=== PATIENT | male | born 1945 | race Caucasian/White ===

== ENCOUNTER 2024-01-27 12:35 | Outpatient (CLI) | payer OTHER, SELFPAY ==
--- NOTE | 2024-01-27 13:00 | MR_ITS ---
[address] [address] Phone:?[phone] Fax:?[phone] Referring Physician Information: Tr Dmias M.D. [address] [place] [address] Phone:?[phone] Fax:?[phone] Patient:?Gerardo Moctezuma D.O.B:?1945 Sex:?Male Phone:?[phone] [facility] MRN:?[id number] Exam Date:?01/27/2024 EXAM: MRI OF THE RIGHT KNEE CLINICAL INFORMATION: The patient is an 78-year-old with right knee pain. Evaluate for meniscal tear. PRIOR SURGERY: None reported. COMPARISON STUDIES: Comparison is made to prior radiographs dated 01/20/2024. TECHNICAL INFORMATION: Imaging was performed on a high-field, 1.5 Mitzy MR scanner. Axial proton-density and fat-suppressed T2 imaging of the right knee was produced in addition to sagittal proton-density and fat-suppressed proton- density imaging. Coronal proton-density and coronal STIR imaging was also produced. FINDINGS: Articular/Extraarticular collections: Effusion: Mild to moderate. Popliteal cyst: Small, seen on sagittal series 6 image 24. Loose bodies: No well-defined intra-articular loose bodies are noted. Subcutaneous and extraarticular soft tissues: Within normal limits. Osseous structures: There is cortical irregularity, subcortical edema, and subcortical cystic change along the articular surfaces of the patellofemoral articulation with spurring along the articular margins and fragmentation along the superior aspect of the patella. The findings are in keeping with patellofemoral osteoarthritis and are consistent with the chondromalacia and chondral loss described below. Additional areas of increased marrow signal intensity can be seen along the articular surfaces of the medial femoral condyle and lateral tibial plateau, in keeping with chondromalacia and chondral loss discussed below. No other bony abnormalities about the knee are seen. Ligamentous structures: ACL: Intact and normal in appearance. PCL: Intact and normal in appearance. MCL: Intact and normal in appearance. LCL: Intact and normal in appearance. Posterolateral corner: Intact and normal in appearance. Posteromedial corner: No posteromedial corner soft tissue injury. Semimembranosus and pes anserine tendons demonstrate no tendinopathy or associated bursitis. Extensor mechanism/Patellar retinacular structures: Patellar tendon: Intact, without tendinopathy. Quadriceps tendon: Intact, without tendinopathy. Retinacula: The medial and lateral retinacula are intact. The medial patellofemoral ligament is intact. Medial compartment: Medial meniscus: The medial meniscus is abnormal in appearance. There is broad- based tearing and degeneration of the middle and posterior portions of the medial meniscus, seen to best advantage on coronal series 7 image 18 and on sagittal series 6 image 21. Additional superior surface tearing of the anterior horn of the medial meniscus can be seen on sagittal series 6 image 25. No definite evidence for well-defined parameniscal cyst formation is seen. Medial femoral condyle: Full-thickness and near full-thickness chondral loss can be seen along the weightbearing surfaces of the medial femoral condyle. Underlying bony changes are seen. Medial tibial plateau: Full-thickness and near full-thickness chondral loss can be seen along the weightbearing surfaces of the medial tibial plateau. Lateral compartment: Lateral meniscus: Apical free edge and inferior surface tearing of the posterior horn of the lateral meniscus can be seen on sagittal series 6 image 10. The remainder of the lateral meniscus appears intact. No parameniscal cyst formation is identified. Lateral femoral condyle: Grade II chondromalacia can be seen along the weightbearing surfaces of the lateral femoral condyle. Lateral tibial plateau: Grade II to III chondromalacia can be seen along the weightbearing surfaces of the lateral tibial plateau. Patellofemoral compartment: Patella: Full-thickness and near full-thickness chondral loss can be seen along the lateral patellar facet with underlying bony change. Trochlea: Full-thickness and near full-thickness chondral loss can be seen along the lateral articular surfaces of the femoral trochlea. Underlying bony changes are seen. Neurovascular: No definite neurovascular abnormalities are seen. CONCLUSION: 1. Tearing of the medial and lateral menisci as discussed above. 2. 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 3. The cruciate and collateral ligaments appear intact. 4. Mild to moderate knee joint effusion and small popliteal cyst. AEC Electronically signed on 01/28/2024 12:53:00 PM by Srinivas Perez M.D.
== END 2024-01-27 12:36 | disposition home or self-care (01) ==
LOC: MRI 12:37
PROVIDERS: PCP Internal Medicine; Visit Provider Orthopaedic Surgery
DX: M25.561 Pain in right knee (principal); S83.281A Other tear of lateral meniscus, current injury, right knee, initial encounter; S83.241A Other tear of medial meniscus, current injury, right knee, initial encounter; M17.11 Unilateral primary osteoarthritis, right knee; M25.461 Effusion, right knee; M71.21 Synovial cyst of popliteal space [Baker], right knee
CPT/HCPCS: 73721

== ENCOUNTER 2024-04-21 09:56 | Day surgery (SDC) | payer MEDICARE, BC, SELFPAY ==
[2024-04-21] VITALS (23 sets, daily range): BP systolic 89–148; BP diastolic 45–76; PULSE 53–81; RESP 14–18; TEMP 36.1–36.6; O2SAT 92–97; BMI 29.0
[2024-04-21] MEDS: OXYCODONE (CR) 10 MG TAB.ER.12H PO (10:30)
[2024-04-21] MEDS: ACETAMINOPHEN 160 MG/5 ML CUP 1000 MG PO (10:30)
[2024-04-21] MEDS: LACTATED RINGERS 1000 ML 1,000 ML 100 ML IV (10:40)
[2024-04-21] MEDS: SODIUM CHLORIDE 0.9 % (FLUSH) 10 ML SYRINGE IVF (10:49)
[2024-04-21] MEDS: fentaNYL 100 MCG/2 ML inj IVP (11:40)
[2024-04-21] MEDS: MIDAZOLAM HCL 1 MG/ML inj IVP (11:40)
--- NOTE | 2024-04-21 11:56 | SUR.PREOP ---
TIME?OUT:?1140 PT/rashid nicholas RN/rober charles MDA?VERIFICATION?OF?SURGICAL?SITE,?PROCEDURE,?AND?CONSENT OBTAINED?PRIOR?TO?INVASIVE?PROCEDURE.
[2024-04-21] MEDS: TRANEXAMIC ACID 100 MG/ML INJ 1000 MG IV (12:23)
--- NOTE | 2024-04-21 13:19 | W.PM.NB ---
Nerve Block Nerve Block Time Seen by Provider: 11:45 Date Seen: 04/21/24 Type of block requested by surgeon for post-operative analgesia: adductor canal Side: right Time out performed: Yes Verification of patient name: Yes Verification of date of : Yes Site marking: site marked Name of person performing procedure: Nick Continuous monitoring Was continuous monitoring of O2 sat, B/P, vehicle monitor technician, recorded every 15 minutes?: Yes Procedure Checklist: sterile prep, needles and gloves Ultrasound guided. Images saved: Yes Medications given in 5ml increments after negative aspiration: Marcaine %: 0.25 mL: 15 Needle gauge: 20 Precedex (mcg): 25 Patient tolerated procedure well: Yes Block Charges Block Charge (with Pro Fee): Femoral Nerve Use of Ultrasound Machine for Block: Yes- US Guidance/pain block
--- NOTE | 2024-04-21 13:19 | W.PM.NB ---
Nerve Block Nerve Block Time Seen by Provider: 11:45 Date Seen: 04/21/24 Type of block requested by surgeon for post-operative analgesia: geniculars Side: right Time out performed: Yes Verification of patient name: Yes Verification of date of : Yes Site marking: site marked Name of person performing procedure: Nick Continuous monitoring Was continuous monitoring of O2 sat, B/P, traffic monitor specialist, recorded every 15 minutes?: Yes Procedure Checklist: sterile prep, needles and gloves Ultrasound guided. Images saved: Yes Medications given in 5ml increments after negative aspiration: Marcaine %: 0.25 mL: 9 Needle gauge: 25 Patient tolerated procedure well: Yes Block Charges Block Charge (with Pro Fee): Genicular Nerve Block
--- NOTE | 2024-04-21 13:20 | W.ANESCHARGE ---
Anesthesia Charges Start Date/Time Anesthesia Start Date: 04/21/24 Anesthesia Start Time: 12:04 Stop Date/Time Anesthesia Stop Date: 04/21/24 Anesthesia Stop Time: 14:15 Summary Extremes of Age - Over 70 or under 1: MDA Coding CPT Codes CPT Codes: ANESTH KNEE ARTHROPLASTY - 00917 ([id number]) P1 - NORMAL HEALTHY PATIENT, QK - HEALTH PSYCHOLOGIST 2-4 CNCRNT ANES PROC, QX - COMPLAINT SUPERVISOR SVC W/ MD MED DIRECTION Additional Codes: Summary - Extremes of Age - Over 70 or under 1: MDA ([id number])
--- NOTE | 2024-04-21 13:53 | PM.ORPRC ---
Procedure Note Date of procedure: 04/21/24 Procedure: PREOPERATIVE DIAGNOSIS: Right knee osteoarthritis POSTOPERATIVE DIAGNOSIS: Right knee osteoarthritis NAME OF OPERATION: Right total knee arthroplasty SURGEON: Tr Dimas MD DRUG PURCHASER: ANJALI Hughes ANESTHESIA: Spinal ESTIMATED BLOOD LOSS: 0 mL COMPLICATIONS: None SPECIMENS: None DRAINS: None PREOPERATIVE ANTIBIOTICS: Ancef 2 grams IMPLANTS: 1. J&J Attune # 8 posterior stabilized femur 2. # 8 fixed-bearing tibia 3. # 8 posterior stabilized, 5 mm fixed-bearing polyethylene 4. 41 patella INDICATIONS: The patient is a 78-year-old with a longstanding history of severe, unrelenting right knee pain secondary to end-stage (grade IV) right knee osteoarthritis. Despite appropriate nonoperative management, including activity modification, anti-inflammatories, arnc-yhc-kwnxuhw pain medication, bracing, physical therapy, and injections they continue to have pain and disability. Operative intervention was offered. The risks, benefits and expected outcomes were discussed in detail. These included but were not limited to: Infection, bleeding, injury to blood vessel or nerve, venous thromboembolism. All questions were answered to their satisfaction. Use of an licensed investment sales assistant was necessary throughout the case for patient positioning and safety, soft tissue retraction, and closure. PROCEDURE: Spinal anesthesia was administered. The patient was placed supine on the operating table. The licensed investment sales assistant made sure the patient was positioned appropriately. The lower extremity was prepped and draped in the usual sterile fashion. The limb was exsanguinated with the Wilson bandage. The pneumatic tourniquet was inflated to 300 mmHg. A standard anterior incision was made with the knee in flexion. Subcutaneous dissection was sharply taken through fascial layer #1. Full-thickness medial and lateral flaps were elevated. The licensed investment sales assistant retracted the soft tissues and protected them throughout the case. A standard subvastus approach was made. The patella was subluxed. The infrapatellar fat pad was debrided. The menisci and cruciate ligaments were sharply d?brided. Marginal osteophytes were d?brided with the rongeur. The drill was used to penetrate the femoral canal. The canal was aspirated and irrigated with pulse lavage. The intramedullary femoral guide was placed for a 5-degree valgus cut, removing 12 mm off the distal femur. The saw was used to make the cut. Whitesides line and the trans epicondylar axis were marked. The femoral sizing guide was pinned onto the distal femur. Three degrees of external rotation nicely parallels the transepicondylar axis. Pins were placed for posterior referencing. The four-in-one cutting guide was pinned onto the distal femur. The anterior, posterior, and chamfer cuts were made. The licensed investment sales assistant protected the collateral ligaments. The box cutting guide was pinned. The box cuts were made. The boxed trial was placed and was an excellent fit. Drill holes for the lugs were made. Attention was then turned to the proximal tibia. The extramedullary tibial guide was placed for a neutral varus/valgus cut with 5 degrees of posterior slope, removing 2 mm based off the medial tibial surface. The licensed investment sales assistant protected the collateral ligaments and the neurovascular bundle. The saw was used to make the cut. Trial components were placed. The knee was nicely balanced in both flexion and extension. The trial components were removed. The tray was placed in appropriate rotation, parallel to our tibial cutting pins. It was pinned by the licensed investment sales assistant and the drill and the punch were used. The tray was removed. The punch was used again. We placed a bone plug in the femoral canal. Attention was then turned to the patella. [place] patellar thickness was 25 mm. The lobster claw resection guide was used with the 9.5 mm charlene. The saw was used to make the cut. Drill holes were made by the licensed investment sales assistant. The trial was placed and was an excellent fit. Cancellous surfaces were irrigated with pulse lavage and thoroughly dried by the licensed investment sales assistant. We cemented the tibial component, then the femoral component. We impacted the 5 mm polyethylene onto the tibial tray. The knee was brought into full extension. We then cemented the patellar component. Excessive cement was removed. The cement was allowed to harden. The knee was taken through a range of motion and was found to be nicely balanced in both flexion and extension. The patella tracks centrally. The licensed investment sales assistant did a three minute dilute Betadine solution soak. The licensed investment sales assistant irrigated the wound with 3 liters of normal saline via pulse lavage. The licensed investment sales assistant reapproximated the extensor mechanism with #1 Vicryl in an interrupted qiqnhi-zi-yuuzg fashion. The licensed investment sales assistant then ran the extensor mechanism with a #1 PDO Stratafix. The licensed investment sales assistant closed the subcutaneous tissues with a 3-0 Stratafix and the skin with a running 3-0 Stratafix in a subcuticular fashion. Glue was used to seal the skin. The licensed investment sales assistant placed a dry dressing. Sponge and needle counts were correct x2. The patient tolerated the procedure well. There were no apparent complications. They were carefully transferred to the hospital bed and taken to the postanesthesia care unit in satisfactory condition. PLAN: The patient will be mobilized with physical therapy. Aspirin will be used for DVT prophylaxis. They will be discharged to home once medically appropriate.
--- NOTE | 2024-04-21 14:16 | W.ANESCHARGE ---
Anesthesia Charges Start Date/Time Anesthesia Start Date: 04/21/24 Anesthesia Start Time: 12:04 Stop Date/Time Anesthesia Stop Date: 04/21/24 Anesthesia Stop Time: 14:15 Summary Extremes of Age - Over 70 or under 1: JEWELRY REPAIRER Coding CPT Codes CPT Codes: ANESTH KNEE ARTHROPLASTY - 47438 ([id number]) P1 - NORMAL HEALTHY PATIENT, QK - MULTI OPERATION MACHINE OPERATOR 2-4 CNCRNT ANES PROC, QX - JEWELRY REPAIRER SVC W/ MD MED DIRECTION Additional Codes: Summary - Extremes of Age - Over 70 or under 1: JEWELRY REPAIRER ([id number])
--- NOTE | 2024-04-21 16:32 | PM.IMCN1 ---
Date of Consult Patient: Other Consult date: 04/21/24 Requesting Physician: Orthopedics Primary Care Provider: John Beasley MD Consult Narrative Reason for consult: Postop care hypertension Narrative: Gerardo Moctezuma is a 78 year old man undergoes elective right total knee arthroplasty due to severe symptomatic right gonarthrosis. Spinal anesthesia. No complications. Estimated blood loss 0 mL. Pain adequately controlled. Review of Systems Status of ROS: Reports: 6 or more systems reviewed and unremarkable except as noted in History and below Narrative: Denies chest heaviness, pressure, tightness, pain. Denies cough. Denies dyspnea at rest, paroxysmal nocturnal dyspnea, or orthopnea. Denies orthostasis or syncope or near-syncope. Denies edema. Denies nausea vomiting. Pain well controlled. Still not able to move right lower extremity. Complains of dry mouth. Is thirsty. No recent illness. No recent travel, trauma. Denies gastrointestinal or genitourinary complaints. [facility] Medical History (Updated 04/21/24 @ 16:40 by Sarabjit Phipps MD) Hypertension ?I10 - Essential (primary) hypertension (ICD-10) 1st degree AV block ?I44.0 - Atrioventricular block, first degree (ICD-10) Basal cell carcinoma (BCC) ?C44.91 - Basal cell carcinoma of skin, unspecified (ICD-10) Surgical History (Updated 04/21/24 @ 16:38 by Sarabjit Phipps MD) History of vasectomy ?Z98.52 - Vasectomy status (ICD-10) History of appendectomy (2007) ?Z90.49 - Acquired absence of other specified parts of digestive tract (ICD-10) Family History Brother Liver cancer Throat cancer Father Glaucoma Prostate cancer Sister Breast cancer Daughter Cancer of sinus Social History Narrative: former smoker (quit 1963) Smoking Status: Former smoker What tobacco products do you use: cigarettes Smoking quit date/years: >15 years ago Do you use any of these nicotine containing products: None Second hand tobacco smoke exposure: No How often do you have a drink containing alcohol: 4 or more times a week AUDIT-C Alcohol total score: 4 Non-prescribed substance use: denies use Caffeine: Yes Meds Home Medications and Allergies Home Medications ?Medication ?Instructions ?Recorded ?Confirmed ?Type atenolol 50 mg-chlorthalidone 25 1 tab PO DAILY 01/20/24 04/21/24 History mg tablet Allergies Allergy/AdvReac Type Severity Reaction Status Date / Time hydromorphone (From Dilaudid) Allergy Unknown Verified 04/21/24 10:50 Exam Narrative: Exam Narrative: I examine him in his hospital room. His is next to him. Appears comfortable no acute distress. Alert and oriented x3. Friendly, articulate, cooperative. Vision and hearing are adequate. Lungs are clear to auscultation. Heart tones with regular rhythm. Abdomen benign. Extremities without edema. Does not move affected right lower extremity yet. Const: Vital Signs, click to edit/add: Vital Signs - 24 hr 04/21/24 10:46 04/21/24 11:40 04/21/24 11:45 Temperature 97.9 F Pulse Rate 70 59 L 58 L Respiratory Rate 18 16 16 Blood Pressure 137/60 128/56 L 128/64 Pulse Oximetry 95 97 97 Oxygen Delivery Me thod Room Air Nasal Cannula Nasal Cannula Oxygen Flow Rate 3 3 04/21/24 11:50 04/21/24 14:15 04/21/24 14:20 Temperature 97.5 F L Pulse Rate 58 L 56 L 53 L Respiratory Rate 16 14 14 Blood Pressure 127/60 89/45 L 96/51 L Pulse Oximetry 97 94 93 Oxygen Delivery Me thod Nasal Cannula Room Air Room Air Oxygen Flow Rate 3 04/21/24 14:25 04/21/24 14:30 04/21/24 14:35 Temperature Pulse Rate 55 L 55 L 56 L Respiratory Rate 14 14 14 Blood Pressure 101/55 L 104/55 L 104/57 L Pulse Oximetry 92 93 92 Oxygen Delivery Me thod Room Air Room Air Room Air Oxygen Flow Rate 04/21/24 14:40 04/21/24 14:45 04/21/24 15:00 Temperature 97 F L Pulse Rate 57 L 58 L Respiratory Rate 14 14 16 Blood Pressure 120/50 L 112/53 L Pulse Oximetry 93 93 92 Oxygen Delivery Me thod Room Air Room Air Room Air Oxygen Flow Rate Assessment and Plan Assessment and plan (1) Osteoarthritis of right knee: Status: Acute (2) Tear of medial meniscus of right knee: Status: Acute (3) Status post total right knee replacement: Problem comment: - 04/21/2024, Dr. Dimas, [facility], [place], [place] Status: Acute (4) Hypertension: Problem comment: -ordinarily on Tenoretic 50/25 once daily -hold Tenoretic night of 04/21/2024 and restart in the morning Status: Acute Plan 1. Reviewed impression with patient and 2. Answered their questions 3. They are agreeable with above-stated plans 4. Will follow with Orthopedic surgery while patient is in hospital 5. Have completed hospitalist portion of discharge summary, from hospitalist perspective patient is ready to be discharged when Orthopedic surgery renders it safe. Total Time Spent Total Time Spent: 40 minute
[2024-04-21] MEDS: ACETAMINOPHEN 500 MG TABLET 1000 MG PO (18:26)
--- NOTE | 2024-04-21 19:09 | PC.NURSE ---
Nursing Care Hours: [id number] Pt this shift arrived from PACU in stable condition. Completed 4 hours of post op recovery without issue. Up to chair with 2 assist. VSS, no pain reported. Bandage CDI, pedal pulses present. Advanced diet to regular without issue. Void pending. Fluids infusing.
[2024-04-21] MEDS: CEFAZOLIN 2 GM in 0.9 % SODIUM CHLORIDE Mini-bag 100 ML IVPB (20:41)
[2024-04-21] MEDS: ASPIRIN 81 MG TABLET EC PO (20:45)
[2024-04-21] MEDS: SENNOSIDES 1 TAB TABLET 2 TAB PO (20:45)
[2024-04-21] MEDS: 0.9 % SODIUM CHLORIDE 500 ML IV (21:07)
[2024-04-22 02:54] VITALS: BP 139/65; PULSE 70; RESP 16; TEMP 36.4; O2SAT 94
[2024-04-22] MEDS: CEFAZOLIN 2 GM in 0.9 % SODIUM CHLORIDE Mini-bag 100 ML IVPB (04:28)
[2024-04-22] MEDS: ACETAMINOPHEN 500 MG TABLET 1000 MG PO ×2 (04:29→10:37)
--- NOTE | 2024-04-22 06:01 | PC.NURSE ---
Shift note: Patient is doing well ambulating with A1, walker and GB. No urine at 2000. N/S 500ml bolus given and has since had more than 1L of urine as per chart. Pain level rated at 2. Icepack applied. Tolerated regular diet well. Dressing intact, clean and dry. Vitally stable.
[2024-04-22 06:30] LABS: Basophils Percent Auto 0.1 % (0.0-3.0); Eosinophils Percent Auto 0.1 % (0.0-7.0); Hematocrit 39.2 % (37.0-53.0); Hemoglobin* 13.7 gm/dL (13.5-17.5); Immature Granulocytes Pct Auto 0.3 %; Lymphocytes Percent Auto 7.7 % (20-44); Mean Corpuscular HGB Conc 35 gm/dL (32-36); Mean Corpuscular Hemoglobin 34 pg (26-34); Mean Corpuscular Volume 98 fL (80-100); Monocytes Percent Auto 8.3 % (0.0-11.0); Neutrophils Percent Auto 83.5 % (42.0-72.0); Platelet Count* 110 K/uL (140-440); RDW Coefficient of Variation % 12.4 % (11.5-15.5); Red Blood Count 4.01 m/uL (4.30-5.90); White Blood Count* 12.13 K/uL (4.50-11.00)
[2024-04-22 06:33] LABS: Slide Review Reflex Yes
[2024-04-22 06:49] LABS: INR 1.03 (0.91-1.10); Prothrombin Time 14.1 Seconds
[2024-04-22 06:50] LABS: Sodium* 135 mmol/L (135-149)
[2024-04-22 06:51] LABS: Potassium* 3.9 mmol/L (3.6-5.1)
[2024-04-22 06:53] LABS: Creatinine* 0.9 mg/dL (0.5-1.5); Est. Creatinine Clearance* 60.83; Estimated Glomerular Filt Rate 86 ml/min
[2024-04-22 06:54] LABS: Blood Urea Nitrogen* 16 mg/dL (7-30)
[2024-04-22 07:23] LABS: Slide Review Acceptable Review (Acceptable)
[2024-04-22 07:45] VITALS: BP 136/60; PULSE 68; RESP 18; TEMP 36.4; O2SAT 96
[2024-04-22 07:56] VITALS: RESP 18; O2SAT 96
--- NOTE | 2024-04-22 08:25 | PM.ORPN ---
Subjective Subjective Time Seen by Provider: 07:30 Date Seen: 04/22/24 Principal diagnosis: Status post right knee replacement Interval history: Gerardo is comfortable. He will discharge to home today. Ortho Exam Narrative Exam Narrative: Alert and oriented x3. Patient is in no acute distress. Converses without labored breathing. Hearing is grossly intact. Ambulates with a walker. Examination of the right knee shows the dressing is intact. There is no erythema or warmth or sign of infection. Mild the [place] anterior knee. Mild soft tissue edema. No ecchymosis. Calf is soft and nontender. He is able to easily straight leg raise. Range of motion is for to 90?. CMS intact right lower extremity. Const Vital Signs, click to edit/add: Vital Signs - 24 hr 04/21/24 10:46 04/21/24 11:40 04/21/24 11:45 Temperature 97.9 F Pulse Rate 70 59 L 58 L Pulse Rate [Pulse Oximeter] Respiratory Rate 18 16 16 Blood Pressure 137/60 128/56 L 128/64 Blood Pressure [Right Arm] Pulse Oximetry 95 97 97 Oxygen Delivery Method Room Air Nasal Cannula Nasal Cannula Oxygen Flow Rate 3 3 04/21/24 11:50 04/21/24 14:15 04/21/24 14:20 Temperature 97.5 F L Pulse Rate 58 L 56 L 53 L Pulse Rate [Pulse Oximeter] Respiratory Rate 16 14 14 Blood Pressure 127/60 89/45 L 96/51 L Blood Pressure [Right Arm] Pulse Oximetry 97 94 93 Oxygen Delivery Method Nasal Cannula Room Air Room Air Oxygen Flow Rate 3 04/21/24 14:25 04/21/24 14:30 04/21/24 14:35 Temperature Pulse Rate 55 L 55 L 56 L Pulse Rate [Pulse Oximeter] Respiratory Rate 14 14 14 Blood Pressure 101/55 L 104/55 L 104/57 L Blood Pressure [Right Arm] Pulse Oximetry 92 93 92 Oxygen Delivery Method Room Air Room Air Room Air Oxygen Flow Rate 04/21/24 14:40 04/21/24 14:45 04/21/24 14:51 Temperature 97 F L Pulse Rate 57 L 58 L 60 Pulse Rate [Pulse Oximeter] Respiratory Rate 14 14 16 Blood Pressure 120/50 L 112/53 L 139/55 L Blood Pressure [Right Arm] Pulse Oximetry 93 93 93 Oxygen Delivery Method Room Air Room Air Room Air Oxygen Flow Rate 04/21/24 15:00 04/21/24 15:00 04/21/24 15:15 Temperature Pulse Rate 55 L 59 L Pulse Rate [Pulse Oximeter] Respiratory Rate 16 16 16 Blood Pressure 110/58 L 115/58 L Blood Pressure [Right Arm] Pulse Oximetry 92 92 Oxygen Delivery Method Room Air Room Air Room Air Oxygen Flow Rate 04/21/24 15:30 04/21/24 15:45 04/21/24 16:00 Temperature Pulse Rate 55 L 55 L 56 L Pulse Rate [Pulse Oximeter] Respiratory Rate 16 Blood Pressure 117/58 L 116/66 104/60 Blood Pressure [Right Arm] Pulse Oximetry 94 95 Oxygen Delivery Method Room Air Room Air Room Air Oxygen Flow Rate 04/21/24 16:30 04/21/24 17:00 04/21/24 18:00 Temperature 97.5 F L Pulse Rate 60 58 L 71 Pulse Rate [Pulse Oximeter] Respiratory Rate 16 16 Blood Pressure 113/75 120/54 L 126/76 Blood Pressure [Right Arm] Pulse Oximetry 96 95 96 Oxygen Delivery Method Room Air Room Air Room Air Oxygen Flow Rate 04/21/24 19:00 04/21/24 20:00 04/21/24 22:19 Temperature 97.3 F L 97.3 F L Pulse Rate 64 67 Pulse Rate [Pulse Oximeter] Respiratory Rate 16 16 16 Blood Pressure 106/65 120/74 Blood Pressure [Right Arm] Pulse Oximetry 96 94 93 Oxygen Delivery Method Room Air Room Air Room Air Oxygen Flow Rate 3 04/21/24 22:19 04/22/24 02:54 04/22/24 07:45 Temperature 97.5 F L 97.5 F L 97.6 F Pulse Rate Pulse Rate [Pulse Oximeter] 81 70 68 Respiratory Rate 16 16 18 Blood Pressure Blood Pressure [Right Arm] 148/68 H 139/65 136/60 Pulse Oximetry 93 94 96 Oxygen Delivery Method Room Air Room Air Room Air Oxygen Flow Rate 04/22/24 07:45 04/22/24 07:56 Temperature Pulse Rate Pulse Rate [Pulse Oximeter] 68 Respiratory Rate 18 18 Blood Pressure Blood Pressure [Right Arm] Pulse Oximetry 96 Oxygen Delivery Method Room Air Oxygen Flow Rate Assessment and Plan Assessment and plan (1) Status post total right knee replacement: Problem details: - 04/21/2024, Dr. [place], [place] Status: Acute Assessment and Plan: Plan for discharge is today to home if they meet discharge criteria. DVT prophylaxis includes aspirin 81 mg twice daily x1 month, Compression stockings as needed for swelling. Frequent ambulation, every hour throughout the day. Remove dressing in 1 week. Observe wound and phone Orthopedics with any questions or concerns Return to clinic in 1 week for a wound check Return to clinic in 6 weeks with surgeon Minimize narcotic use. Wean off and discontinue soon as possible. Activities as tolerated. No strenuous activity. Outpatient physical therapy as scheduled. Ice and elevate the operative extremity. No restriction on ice.
[2024-04-22] MEDS: SENNOSIDES 1 TAB TABLET 2 TAB PO (09:00)
[2024-04-22] MEDS: ASPIRIN 81 MG TABLET EC PO (09:00)
[2024-04-22] MEDS: atenoloL 50 MG TABLET PO (09:00)
[2024-04-22] MEDS: hydroCHLOROthiazide 25 MG TABLET PO (09:00)
--- NOTE | 2024-04-22 11:27 | PC.NURSE ---
End of Shift: Patient pleasant and cooperative, A&O. VSS, afebrile. SpO2 maintained above 90% on RA. Patient denied pain this shift. Dressing to right knee C/D/I. Tolerating regular diet. IV removed with tip intact. Discharge instructions provided, all questions answered. Discharged to home via wheelchair with . ?
--- OUTSIDE RECORDS SUMMARY | 2024-04-22 13:29 | XMS_ITS | Encounter Summary ---
Author Organization [facility] Address [address] [place] [id number] Care Team Providers Care Area Operations Manager Name Role Phone John Beasley MD Primary Care Provider [phone] John Beasley MD Unavailable [phone] Ip, Maico Lange MD Unavailable [phone] Encounter Details Date Type Department Care Team (Late st Contact Info) Description 01/01/2024 MyC Medical Advice Initial Department [facility] Social History Tobacco Use Types Packs/Day Years Used Date Smoking Tobacco: Former Cigarettes Q uit: 10/05/1963 Smokeless Tobacco: Never Comments:quit in 1963 Alcohol Use Standard Drinks/Week Comments Yes 0 (1 standard drink = 0.6 oz pur e alcohol) 1 drink a day Vodka PHQ-2 Answer Date Recorded PHQ-2 Score 0 05/01/2023 Adolescent Education Answer Date Record ed Getting School Help Needed Not on file 12/22 Sex and Gender Information Value Date Recorded Sex Assigned at Male 12/22/2021 7:57 AM CDT 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 Gender Identity Male 12/19/2020 9:39 AM CDT Sexual Orientation Choose not to disclose 2020 9:39 AM CDT 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
--- OUTSIDE RECORDS SUMMARY | 2024-04-22 13:29 | XMS_ITS | Encounter Summary ---
Author Organization [facility] Address [address] [place], [place] [address]. [place] [address] Care Team Providers Care Second Shift Supervisor Name Role Phone John Beasley MD Primary Care Provider [phone] John Beasley MD Unavailable [phone] Ip, Maico Lange MD Unavailable [phone] Encounter Details Date Type Department Care Team (Latest Contact Info) Description 04/16/2024 Travel Social History Tobacco Use Types Packs/Day Years Used Date Smoking Tobacco: Former Cigarettes Q uit: 10/05/1963 Smokeless Tobacco: Never Comments:quit in 1963 Alcohol Use Standard Drinks/Week Comments Yes 0 (1 standard drink = 0.6 oz pur e alcohol) 1 drink a day Vodka PHQ-2 Answer Date Recorded PHQ-2 Score 0 04/16/2024 Adolescent Education Answer Date Record ed Getting School Help Needed Not on file 12/22 Interpersonal Safety Answer Date Record ed Do you feel physically and e motionally safe where you currently live? Yes 04/16/2024 Within the past 12 months, h ave you been hit, slapped, kicked or otherwise physically hurt by someone? No 04/16/2024 Within the past 12 months, h ave you been humiliated or emotionally abused in other ways by your partner or ex-partner? 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
--- OUTSIDE RECORDS SUMMARY | 2024-04-22 13:29 | XMS_ITS | Encounter Summary ---
Author Organization [facility] Address [address] [place] [address]. [place] [address] Care Team Providers Care Dragline Mechanic Name Role Phone John Beasley MD Primary Care Provider [phone] John Beasley MD Unavailable [phone] Ip, Maico Lange MD Unavailable [phone] Reason for Referral * CV Cardio consult (Emergency: 1-2 Days) - Pending Review Specialty Diagnoses / Procedures Referred By Contac t Referred To Contact Cardiovascular Disease Diagnoses Preop general physical exam 1st degree AV block Denise Mason MD [address] [place] [address] Phone: tel: fax: Referral ID Status Reason Start Date Expiration Date V isits Requested Visits Authorized [id number] Pending Review 04/16/2024 04/16/2025 1 1 Question Answer Reason for Consult: Pre-Op Clearance Patient Scheduling Instructions: [employer] will call you to coordinate your care as prescribed by your provider. If you don't hear from a customer counter representative within 2 business days, please call [phone]. Additional Information: patient has right knee replacement on 04/21/2024. EKG shows first degree AV block. Comments Please be aware that coverage of these services is subject to the terms and limitations of your health insurance plan. Call member services at your health plan with any benefit or coverage questions. [employer] will call you to coordinate your care as prescribed by your provider. If you don't hear from a customer counter representative within 2 business days, please call [phone]. IAC REHABILITATION SPECIALIST Reason for Visit * Reason Comments Pre-Op Exam Encounter Details Date Type Department Care Team (Late st Contact Info) Description 04/16/2024 9:30 AM CARDIAC REHABILITATION SPECIALIST Office Visit [facility] [address] [place] [id number] Denise Mason MD [address] [place] [address] Preop general physical exam (Primary Dx); Chronic pain of right knee; Essential hypertension; 1st degree AV block; Screening for prostate cancer Social History Tobacco Use Types Packs/Day Years [...] AM CDT Legal Sex Male 4:42 AM CARDIAC REHABILITATION SPECIALIST Gender Identity Male 12/19/2020 9:39 AM CDT Sexual Orientation Choose not to disclose 2020 9:39 AM CDT 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 Not on file Not on file documented as of this encounter Last Filed Vital Signs Vital Sign Reading Time Taken Comments Blood Pressure 140/74 04/16/2024 9:14 AM CARDIAC REHABILITATION SPECIALIST Pulse 77 04/16/2024 9:14 AM CARDIAC REHABILITATION SPECIALIST Temperature 36.3 C (97.4 F) 04/16/2024 9:14 AM CARDIAC REHABILITATION SPECIALIST Respiratory Rate 18 04/16/2024 9:14 AM CARDIAC REHABILITATION SPECIALIST Oxygen Saturation 97% 04/16/2024 9:14 AM CARDIAC REHABILITATION SPECIALIST Inhaled Oxygen Concentration - - Weight 91.1 kg (200 lb 14.4 oz) 04/16/2024 9:14 AM CARDIAC REHABILITATION SPECIALIST Height 179.7 cm (5' 10.75) 04/16/2024 9:[address] Body Mass Index 28.22 04/16/2024 9:14 AM CARDIAC REHABILITATION SPECIALIST documented in this encounter Patient Instructions * Patient Instructions* Denise Mason MD - 04/16/2024 9:30 AM CARDIAC REHABILITATION SPECIALIST Please take your morning medication with a small sip of water on the morning of the procedure. IAC REHABILITATION SPECIALIST documented in this encounter Progress Notes * Denise Mason MD - 04/16/2024 9:30 AM CST Preoperative Evaluation [address] [facility] [address] Primary Provider: John Beasley MD Pre-op Performing Provider: Denise Mason MD Apr 16, 2024 04/16/2024 Surgical Information What procedure is being done? Right knee replacement Facility or Hospital where procedure/surgery will be performed: [facility] Who [place] doing the [place] [facility] [place] of surgery / procedure: Time of surgery / procedure: dont know yet Where do you plan to recover after surgery? at home with family Fax number for surgical facility: Assessment & Plan The proposed surgical procedure is considered INTERMEDIATE risk. Preop general physical exam Chronic pain of right knee - EKG 12-lead complete w/read - Clinics - Adult Cardiology Eval Office Workforce Planner Referral; Future Essential hypertension Blood pressure reviewed, within target. Patient is on atenolol chlorthalidone daily. Continue medication at the current dose. Update electrolytes/creatinine check. Patient requesting for completion of additional lab work including lipid panel that he normally gets done at around this time of the year. - BASIC METABOLIC PANEL; Future - Lipid panel reflex to direct LDL Fasting; Future - BASIC METABOLIC PANEL - Lipid panel reflex to direct LDL Fasting 1st degree AV block Noted on EKG completed for preop examination. Currently, patient does not endorse any symptoms likechest pain or shortness of breath. METS is greater than 4. This was further discussed with senior MD colleague in the clinic and recommendation to proceed with cardiology referral prior to the procedure since this has not been noted on prior EKGs. Priority cardiology referral has been placed. Patient updated. - Adult Cardiology Eval Office Workforce Planner Referral; Future Screening for prostate cancer Patient requesting for completion of additional lab work at today's visit including PSA. - PSA, screen; Future - PSA, screen - No identified additional risk factors other than previously addressed Recommendation Patient referred to cardiology for evaluation before surgery. Surgery approval pending completion of consultation. Lillian Carrillo is a 78 year old, presenting for the following: Pre-Op Exam 04/16/2024 9:16 AM Additional Questions Roomed by Tania Lyn MA Accompanied by Self HPI related to upcoming procedure: Right knee pain, will be undergoing right knee replacement procedure. 04/16/2024 Pre-Op Questionnaire Have you ever had a heart attack or stroke? No Have you ever had surgery on your heart or blood vessels, such as a stent placement, a coronary artery bypass, or surgery on an artery in your head, neck, heart, or legs? No Do you have chest pain with activity? No Do you have a history of heart failure? No Do you currently have a cold, bronchitis or symptoms of other infection? No Do you have a cough, shortness of breath, or wheezing? No Do you or anyone in your family have previous history of blood clots? No Do you or does anyone in your family have a serious bleeding problem such as prolonged bleeding following surgeries or cuts? No Have you ever had problems with anemia or been told to take iron pills? No Have you had any abnormal blood loss such as black, tarry or bloody stools? No Have you ever had a blood transfusion? (!) YES Have you ever had a transfusion reaction? No Are you willing to have a blood transfusion if it is medically needed before, during, or after yoursurgery? Yes Have you or any of your relatives ever had problems with anesthesia? No Do you have sleep apnea, excessive snoring or daytime drowsiness? No Do you have any artifical heart valves or other implanted medical devices like a pacemaker, defibrillator, or continuous glucose monitor? No Do you have artificial joints? No Are you allergic to latex? No Health Care Directive Patient does not have a Health Care Directive: Patient states has Advance Directive and will bring in a copy to clinic. Preoperative Review of PHONOGRAPH CARTRIDGE ASSEMBLER PHONOGRAPH CARTRIDGE ASSEMBLER reviewed - no record of controlled substances prescribed. Patient Active Problem List Diagnosis Date Noted CARDIOVASCULAR SCREENING; LDL GOAL LESS THAN 130 01/22/2010 Priority: Medium Essential hypertension Priority: Medium Problem list name updated by automated process. Provider to review Other and unspecified malignant neoplasm of skin of other and unspecified parts of face Priority: Medium Basal cell carcinoma of nose IMO update changed this record. Please review for accuracy Past Medical History: Diagnosis Date Other and unspecified malignant neoplasm of skin of other and unspecified parts of face Basal cell carcinoma of nose; see PSH Unspecified essential hypertension Past Surgical History: Procedure Laterality Date APPENDECTOMY 2006 ruptured [facility] NONSPECIFIC PROCEDURE 1998 Exc of basal cell ca of nose [facility] NONSPECIFIC PROCEDURE Vasectomy [facility] NONSPECIFIC PROCEDURE 2007 Appendectomy; intestinal leak since; followed at [facility] Current Outpatient Medications Medication Sig Dispense Refill atenolol-chlorthalidone (TENORETIC) 50-25 MG tablet Take 1 tablet by mouth daily 90 tablet 3 No Known Allergies Social History Tobacco Use Smoking status: Former Current packs/day: 0.00 Types: Cigarettes Quit date: 10/05/1963 Years since quittin.5 Smokeless tobacco: Never Tobacco comments: quit in 1963 Substance Use Topics Alcohol use: Yes Comment: 1 drink a day Vodka History Drug Use No Review of Systems Constitutional, HEENT, cardiovascular, pulmonary, gi and gu systems are negative, except as otherwise noted. Objective BP 140/74 (BP Location: Right arm, Patient Position: Sitting, Cuff Size: Adult Regular) Pulse 77 Temp 97.4 ??F (36.3 ??C) (Oral) Resp 18 Ht 1.797 m () Wt 91.1 kg (200 lb 14.4 oz) SpO2 97% BMI 28.22 kg/m?? Estimated body mass index is 28.22 kg/m?? as calculated from the following: Height as of this encounter: 1.797 m (5' 10.75). Weight as of this encounter: 91.1 kg (200 lb 14.4 oz). Physical Exam GENERAL: alert and no distress RESP: lungs clear to auscultation - no rales, rhonchi or wheezes CV: regular rate and rhythm, normal S1 S2, no S3 or S4, no murmur, click or rub, no peripheral edema MS: no gross musculoskeletal defects noted, no edema NEURO: Normal strength and tone, mentation intact and speech normal PSYCH: mentation appears normal, affect normal/bright Recent Labs Lab Test 05/01/23 0930 HGB 16.1 PLT 164 NA 139 POTASSIUM 4.1 CR 1.04 Diagnostics Labs pending at this time. Results will be reviewed when available. EKG: Normal Sinus Rhythm, first-degree AV block Revised Cardiac Risk Index (RCRI) The patient has the following serious cardiovascular risks for perioperative complications: - No serious cardiac risks = 0 points RCRI Interpretation: 0 points: Class I (very low risk - 0.4% complication rate) Signed Electronically by: Denise Mason MD A copy of this evaluation report is provided to the requesting physician. IAC REHABILITATION SPECIALIST documented in this encounter Plan of Treatment Pending Results Name Type Priority Associated Diagnoses Date /Time EKG 12-lead complete w/read - Clinics EKG Routine Preop general physical exam 04/16/2024 9:31 AM CARDIAC REHABILITATION SPECIALIST Scheduled Referrals Name Type Priority Associated Diagnoses Orde r Schedule Adult Cardiology Eval Office Workforce Planner Referral Referral Emergency: 1-2 Days Preop general physical exam 1st degree AV block Expected: 04/16/2024 (Approximate), Expires: 04/16/2025 documented as of this encounter Procedures Procedure Name Priority Date/Time Associated Diagnosis Comments PROSTATE SPECIFIC ANTIGEN SCREEN Routine 04/16/2024 10:02 AM CARDIAC REHABILITATION SPECIALIST Screening for prostate cancer LIPID REFLEX TO DIRECT LDL PANEL Routine 04/16/2024 10:02 AM CARDIAC REHABILITATION SPECIALIST Essential hypertension BASIC METABOLIC PANEL Routine 04/16/2024 10:02 AM CARDIAC REHABILITATION SPECIALIST Essential hypertension documented in this encounter Results * (ABNORMAL) Lipid panel reflex to direct LDL Fasting (04/16/2024 10:02 AM CARDIAC REHABILITATION SPECIALIST) Cholesterol 184 <200 mg/dL 04/16/2024 10:49 PM CARDIAC REHABILITATION SPECIALIST [facility] Triglycerides 171(H) <150 mg/dL 04/16/2024 10:49 PM CARDIAC REHABILITATION SPECIALIST [facility] Direct Measure HDL 50 >=40 mg/dL 04/16/2024 10:49 PM CARDIAC REHABILITATION SPECIALIST [facility] LDL Cholesterol Calculated 100(H) <100 mg/dL 04/16/2024 10:49 PM CARDIAC REHABILITATION SPECIALIST [facility] Non HDL Cholesterol 134(H) <130 mg/dL 04/16/2024 10:49 PM CARDIAC REHABILITATION SPECIALIST [facility] Patient Fasting > 8hrs? Yes 04/16/2024 10:49 PM CARDIAC REHABILITATION SPECIALIST [facility] Blood BLOOD SPECIMEN / Unknown Venipuncture / Unknown 04/16/2024 10:02 AM CARDIAC REHABILITATION SPECIALIST 04/16/2024 10:02 AM CARDIAC REHABILITATION SPECIALIST Narrative [facility] - 04/16/2024 10:49 PM CARDIAC REHABILITATION SPECIALIST Cholesterol Desirable: < 200 mg/dL Borderline High: 200 - 239 mg/dL High: >= 240 mg/dL Triglycerides Normal: < 150 mg/dL Borderline High: 150 - 199 mg/dL High: 200-499 mg/dL Very High: >= 500 mg/dL Direct Measure HDL Female: >= 50 mg/dL Male: >= 40 mg/dL LDL Cholesterol Desirable: < 100 mg/dL Above Desirable: 100 - 129 mg/dL Borderline High: 130 - 159 mg/dL High: 160 - 189 mg/dL Very High: >= 190 mg/dL Non HDL Cholesterol Desirable: < 130 mg/dL Above Desirable: 130 - 159 mg/dL Borderline High: 160 - 189 mg/dL High: 190 - 219 mg/dL Very High: >= 220 mg/dL us Denise Mason MD LAB - BLOOD ORDERABLES Final Res ult [facility] [address] [facility] [address] [place] [address], [facility] * PSA, screen (04/16/2024 10:02 AM CARDIAC REHABILITATION SPECIALIST) Prostate Specific Antigen Screen 3.10 ng/mL 04/16/2024 10:49 PM CARDIAC REHABILITATION SPECIALIST [facility] Comment:No reference ranges have been established for patients over 80 years. Blood BLOOD SPECIMEN / Unknown Venipuncture / Unknown 04/16/2024 10:02 AM CARDIAC REHABILITATION SPECIALIST 04/16/2024 10:02 AM CARDIAC REHABILITATION SPECIALIST Narrative [facility] - 04/16/2024 10:49 PM CARDIAC REHABILITATION SPECIALIST This result is obtained using the Donald Elecsys total PSA method on the gloria e801 immunoassay analyzer, which is an ultrasensitive method. Results obtained with different assay methods or kits cannot be used interchangeably. This test is intended for initial prostate cancer screening. PSA values exceeding the age-specific limits are suspicious for prostate disease, but additional testing, such as prostate biopsy, is needed to diagnose prostate pathology. The [place] [employer] recommends annual examination with digital rectal examination and serum PSA beginning at age 50 and for men with a life expectancy of at least 10 years after detection of prostate cancer. For men in high-risk groups, such as Americans or men with a first-degree relative diagnosed at a younger age, testing should begin at a younger age. It is generally recommended that information be provided to patients about the benefits and limitations of testing and treatment so they can make informed decisions. us Denise Mason MD LAB - BLOOD ORDERABLES Final Res ult [facility] [address] [facility], [address] [id number] * BASIC METABOLIC PANEL (04/16/2024 10:02 AM CARDIAC REHABILITATION SPECIALIST) Sodium 140 135 - 145 mmol/L 04/16/2024 10:49 PM CARDIAC REHABILITATION SPECIALIST [facility] Potassium 3.9 3.4 - 5.3 mmol/L 04/16/2024 10:49 PM CARDIAC REHABILITATION SPECIALIST [facility] Chloride 102 98 - 107 mmol/L 04/16/2024 10:49 PM CARDIAC REHABILITATION SPECIALIST [facility] Carbon Dioxide (CO2) 27 22 - 29 mmol/L 04/16/2024 10:49 PM CARDIAC REHABILITATION SPECIALIST [facility] Anion Gap 11 7 - 15 mmol/L 04/16/2024 10:49 PM CARDIAC REHABILITATION SPECIALIST [facility] Urea Nitrogen 12.9 8.0 - 23.0 mg/dL 04/16/2024 10:49 PM CARDIAC REHABILITATION SPECIALIST [facility] Creatinine 1.13 0.67 - 1.17 mg/dL 04/16/2024 10:49 PM CARDIAC REHABILITATION SPECIALIST [facility] GFR Estimate 66 >60 mL/min/1.7 3m2 04/16/2024 10:49 PM CARDIAC REHABILITATION SPECIALIST [facility] Comment:eGFR calculated usin 2020 CKD-EPI equation. Calcium 10.0 8.8 - 10.4 mg/dL 04/16/2024 10:49 PM CARDIAC REHABILITATION SPECIALIST [facility] Comment:Reference intervals for this test were updated on 10/08/2023 to reflect our healthy population more accurately. There may be differences in the flagging of prior results with similar values performed with this method. Those prior results can be interpreted in the context of the updated reference intervals. Glucose 98 70 - 99 mg/dL 04/16/2024 10:49 PM CARDIAC REHABILITATION SPECIALIST [facility] Patient Fasting > 8hrs? Yes 04/16/2024 10:49 PM CARDIAC REHABILITATION SPECIALIST [facility] Blood BLOOD SPECIMEN / Unknown Venipuncture / Unknown 04/16/2024 10:02 AM CARDIAC REHABILITATION SPECIALIST 04/16/2024 10:02 AM CARDIAC REHABILITATION SPECIALIST us Denise Mason MD LAB - BLOOD ORDERABLES Final Res ult [facility] [address] [facility], [address] [id number] documented in this encounter Visit Diagnoses Diagnosis Preop general physical exam- Primary Other specified pre-operative examination Chronic pain of right knee Essential hypertension Unspecified essential hypertension 1st degree AV block First degree atrioventricular block Screening for prostate cancer Special screening for malignant neoplasm of prostate documented in this encounter Care Teams Dragline Mechanic Relationship Specialty Start Date End Date John Beasley MD [address] [place], [place] [address] PCP - General 08/04/08 John Beasley MD [address] [place], [place] [address] Assigned PCP 01/06/22 Maico Hussein MD [address] [place] [id number] Cardiovascular Disease 04/16/24 documented as of this encounter
--- OUTSIDE RECORDS SUMMARY | 2024-04-22 13:29 | XMS_ITS | Encounter Summary ---
Author Organization [facility] Address [address] [place] [address] Care Team Providers Care Charge Nurse Name Role Phone John Beasley MD Primary Care Provider [phone] John Beasley MD Unavailable [phone] Ip, Maico Lange MD Unavailable [phone] Encounter Details Date Type Department Care Team (Late st Contact Info) Description 01/01/2024 MyC Medical Advice Initial Department [facility] Social History Tobacco Use Types Packs/Day Years [...] AM CDT Legal Sex Male 4:42 AM SENIOR CONSULTING MANAGER Gender Identity Male 12/19/2020 9:39 AM CDT Sexual Orientation Choose not to disclose 2020 9:39 AM CDT 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 [address] [place] [address] Cardiovascular Disease 04/16/24 documented as of this encounter
--- OUTSIDE RECORDS SUMMARY | 2024-04-22 13:29 | XMS_ITS | Encounter Summary ---
Author Organization [facility] Address [address] [place] [address] Care Team Providers Care Fermenter Helper Name Role Phone John Beasley MD Primary Care Provider John Beasley MD Unavailable [phone] John Beasley MD Unavailable [phone] Shelia Quijano APRN LEAD ATG DEVELOPER Unavailable Un available Shelia Quijano APRN LEAD ATG DEVELOPER Unavailable Un available John Beasley MD Unavailable [phone] John Beasley MD Unavailable Maico Hussein MD Unavailable [phone] Encounter Details Date Type Department Care Team (Late st Contact Info) Description 12/20/2010 [facility] [address] [place] [address] [facility] Social History Tobacco Use Types Packs/Day Years Used Date Smoking Tobacco: Former Cigarettes Q uit: 10/05/1963 Smokeless Tobacco: Never Comments:quit in 1963 Alcohol Use Standard Drinks/Week Comments Yes 0 (1 standard drink = 0.6 oz pur e alcohol) 14-21 drinks weekly Sex and Gender Information Value Date Recorded Sex Assigned at Male 12/22/2021 7:57 AM CDT Legal Sex Male 4:42 AM DIRECTOR OF SPORTS PERFORMANCE Gender Identity Male 12/19/2020 9:39 AM CDT Sexual Orientation Choose not to disclose 2020 9:39 AM CDT 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 file Not on file documented as of this encounter Plan of Treatment Not on file documented as of this encounter Visit Diagnoses Not on filedocumented in this encounter Care Teams Fermenter Helper Relationship Specialty Start Date End Date John Beasley MD [address] [place] [address] PCP - General 08/04/08 John Beasley MD [address] [place], [place] [address] PCP - Assigned PCP 08/04/08 05/27/18 John Beasley MD [address] [place], [place] [address] Assigned PCP 12/27/11 06/25/20 Shelia Quijano APRN LEAD ATG DEVELOPER Assigned PCP 01/22/21 01/05/22 Shelia Quijano APRN LEAD ATG DEVELOPER Assigned PCP 06/26/20 01/14/21 John Beasley MD [address] [place] [address] Assigned PCP 01/15/21 01/21/21 John Beasley MD [address] [place] [address] Assigned PCP 01/06/22 Maico Hussein MD [address] [place] [id number] Cardiovascular Disease 04/16/24 documented as of this encounter
--- OUTSIDE RECORDS SUMMARY | 2024-04-22 13:29 | XMS_ITS | Encounter Summary ---
Author Organization [facility] Address [address] [place] [address] Care Team Providers Care Tax Senior Associate Name Role Phone John Beasley MD Primary Care Provider [phone] John Beasley MD Unavailable John Beasley MD Unavailable Shelia Quijano APRN PIPE BENDING MACHINE OPERATOR Unavailable Un available Shelia Quijano APRN PIPE BENDING MACHINE OPERATOR Unavailable Un available John Beasley MD Unavailable John Beasley MD Unavailable Maico Hussein MD Unavailable [phone] Encounter Details Date Type Department Care Team (Late st Contact Info) Description 03/07/2015 [facility] Medical Advice [address] [place] [address] John Beasley MD [address] [facility] [place] [address] Social History Tobacco Use Types Packs/Day Years Used Date Smoking Tobacco: Former Cigarettes Q uit: 10/05/1963 Smokeless Tobacco: Never Comments:quit in 1963 Alcohol Use Standard Drinks/Week Comments Yes 0 (1 standard drink = 0.6 oz pur e alcohol) 14-21 drinks weekly Sex and Gender Information Value Date Recorded Sex Assigned at Male 12/22/2021 7:57 AM CDT Legal Sex Male 4:42 AM HEADER SET UP OPERATOR Gender Identity Male 12/19/2020 9:39 AM CDT Sexual Orientation Choose not to disclose 2020 9:39 AM CDT 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 Not on file Not on file documented as of this encounter Plan of Treatment Not on file documented as of this encounter Visit Diagnoses Not on filedocumented in this encounter Care Teams Tax Senior Associate Relationship Specialty Start Date End Date John Beasley MD [address] [place] [address] PCP - General 08/04/08 John Beasley MD [address] [place] [address] PCP - Assigned PCP 08/04/08 05/27/18 John Beasley MD [address] [place] [address] Assigned PCP 12/27/11 06/25/20 Shelia Quijano APRN PIPE BENDING MACHINE OPERATOR Assigned PCP 01/22/21 01/05/22 Shelia Quijano APRN PIPE BENDING MACHINE OPERATOR Assigned PCP 06/26/20 01/14/21 John Beasley MD [address] [place] [address] Assigned PCP 01/15/21 01/21/21 John Beasley MD [address] [address] Assigned PCP 01/06/22 Maico Hussein MD [address] [place] [id number] Cardiovascular Disease 04/16/24 documented as of this encounter
--- OUTSIDE RECORDS SUMMARY | 2024-04-22 13:29 | XMS_ITS | Encounter Summary ---
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 Gender Identity Male 12/19/2020 9:39 AM CDT Sexual Orientation Choose not to disclose 2020 9:39 AM CDT 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
--- OUTSIDE RECORDS SUMMARY | 2024-04-22 13:29 | XMS_ITS | Encounter Summary ---
Author Organization [facility] Address [address] [place] [address] Care Team Providers Care Penetration Tester Name Role Phone John Beasley MD Primary Care Provider Shelia Quijano APRN AUTOMOTIVE PARTS ADVISOR Unavailable Un available John Beasley MD Unavailable [phone] John Beasley MD Unavailable [phone] Maico Hussein MD Unavailable [phone] Reason for Visit * Reason Comments Medication Refill Encounter Details Date Type Department Care Team (Late st Contact Info) Description 01/20/[address] [place] [address] John Beasley MD [address] [place] [address] Medication Refill Social History Tobacco Use Types Packs/Day Years Used Date Smoking Tobacco: Former Cigarettes Q uit: 10/05/1963 Smokeless Tobacco: Never Comments:quit in 1963 Alcohol Use Standard Drinks/Week Comments Yes 0 (1 standard drink = 0.6 oz pur e alcohol) 1 drink a day Vodka PHQ-2 Answer Date Recorded PHQ-2 Score 0 12/22/2020 Sex and Gender Information Value Date Recorded Sex Assigned at Male 12/22/2021 7:57 AM CDT Legal Sex Male 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 No / Unsure 12/22/2020 10:26 AM CDT documented as of this encounter Miscellaneous Notes * Telephone Encounter - Ely Pepe RN - 01/23/2021 10:48 AM CDT Prescription approved per [facility] Refill Protocol. Ely Ellis RN documented in this encounter Plan of Treatment Not on file documented as of this encounter Visit Diagnoses Diagnosis Essential hypertension Unspecified essential hypertension documented in this encounter Care Teams Penetration Tester Relationship Specialty Start Date End Date John Beasley MD [address] [place] [address] PCP - General 08/04/08 Shelia Quijano APRN AUTOMOTIVE PARTS ADVISOR Assigned PCP 01/22/21 01/05/22 John Beasley MD [address] [place] [address] Assigned PCP 01/15/21 01/21/21 John Beasley MD [address] [place] [address] Assigned PCP 01/06/22 Maico Hussein MD [address] [place] [address] Cardiovascular Disease 04/16/24 documented as of this encounter
--- OUTSIDE RECORDS SUMMARY | 2024-04-22 13:29 | XMS_ITS | Encounter Summary ---
Author Organization [facility] Address [address] [place] [address]. 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 Pt frustrated, wanting to know if can be done after surgery. Rotary Machine Operator reiterated the importance of further evaluation - cardiac clearance due to risks, and is notcleared for surgery until done and assessed by cardiology's advise. Pt presented understanding. Appt scheduled 04/17/24 Future Appointments 04/16/2024 - 10/13/2024 Date Visit Type Length Department Provider 04/17/2024 1:45 PM URGENT NEW 30 min [facility] Ip, Maico Lange MD Location Instructions: Our clinic is located in the [facility] at [address], [address], [place] [address]. For your convenience we have parking in both our ramp and outside lot. Please enter off of [address] for easiest access. RAFT RIGGING AND CONTROLS MECHANIC * Telephone Encounter - Denise Mason MD - 04/16/2024 10:02 AM CST [facility] If the patient calls back, please give him the following information: On further review of the EKG and first-degree AV block, just as we had discussed during the in office visit this will need cardiology follow-up. Since he is having general anesthesia for the upcomingright knee replacement, do recommend proceeding with a cardiology referral for preop clearance before the procedure. A high-priority referral has been sent to the team. Thank you. RAFT RIGGING AND CONTROLS MECHANIC documented in this encounter Plan of Treatment Not on file documented as of this encounter Visit Diagnoses Not on filedocumented in this encounter Care Teams Drawbridge Operator Relationship Specialty Start Date End Date John Beasley MD [address] [place] [address] PCP - General 08/04/08 John Beasley MD [address] [place] [address] Assigned PCP 01/06/22 Maico Hussein MD [address] [place] [address] Cardiovascular Disease 04/16/24 documented as of this encounter
--- OUTSIDE RECORDS SUMMARY | 2024-04-22 13:31 | XMS_ITS | Clinical Summary ---
Author Organization [facility] Address [address] [place] [address]. [place] [address] Care Team Providers Care Teletypist Name Role Phone John Beasley MD Primary Care Provider John Beasley MD Unavailable [phone] Ip, Maico Lange MD Unavailable [phone] Allergies No known active allergies Medications atenolol-chlortha lidone (TENORETIC) 50-25 MG tabletIndications :Essential hypertension Take 1 tablet by mouth daily 90 tablet 3 09/18/2023 Active Active Problems Problem Noted Date Diagnosed Date CARDIOVASCULAR SCREENING; LDL GOAL LESS THAN 130 01/22/2010 Other and unspecified malign ant neoplasm of skin of other and unspecified parts of face Overview (05/06/2012): Basal cell carcinoma of nose IMO update changed this record. Please review for accuracy Essential hypertension Overview (12/24/2014): Problem list name updated by automated process. Provider to review Resolved Problems Problem Noted Date Diagnosed Date Resolved Date Advanced directives, counseling/discussion 07/02/2012 09/09/2023 Overview (07/02/2012): Patient states has Advance Directive and will bring in a copy to clinic. [email or web address] 11/21/2005 12/18/2005 Encounters Date Type Department Care Team Description 04/17/2024 1:45 PM LEAD DENTAL ASSISTANT Office Visit [facility] [address] [place] [address] [address] [place] [phone] Denise Mason MD Ip, Brian Hin Chiu, MD Preop general physical exam; 1st degree AV block 04/16/2024 9:30 AM LEAD DENTAL ASSISTANT Office Visit [facility] [address] [facility] [address] [place] [phone] Denise Mason MD Preop general physical exam (Primary Dx); Chronic pain of right knee; Essential hypertension; 1st degree AV block; Screening for prostate cancer 04/16/2024 Telephone [facility] [address] [place] [address] [address] [place] [phone] Maico Hussein MD Appointment (Next day appt ) 04/16/2024 Telephone [facility] [address] [facility] [address] [place] [phone] Denise Mason MD 04/16/2024 Travel from Last 3 Months Immunizations Name Administration Dates Next Due Influenza (High Dose) Trival ent,PF (Fluzone) 02/06/2024,01/21/2018,01/16/2016,2014,12/22/2013,01/15/2013 Influenza (IIV3) PF 01/16/2013,01/05/2012,2008 Influenza Vaccine 65+ (FLUAD) 01/18/2022 Influenza Vaccine 65+ (Fluzone HD) 01/08/2023, Influenza Vaccine >6 months,quad, PF 01/09/2017 Pneumo Conj 13-V (2010&after) 12/17/2014 Pneumococcal 23 valent 10/27/2010 Pneumococcal Conjugate (PCV21) 02/06/2024 RSV Vaccine (Arexvy) 04/07/2023 TD,PF 7+ (Tenivac) 04/08/2001 TDAP Vaccine (Adacel) 07/02/2012 Zoster recombinant adjuvante d (SHINGRIX) 12/25/2022 Family History Medical History Relation Comments Cancer Brother 1 pancreas,liver Cancer Brother 2 neck,throat Eye Disorder Father glaucoma Prostate Cancer Father at age 83 Unknown/Adopted Mother at age 83; was found the day after gallbladder surgery Cardiovascular Sister 1 brain Cancer Sister 2 breast Cancer Sister 3 breast Relation Status Comments Brother 1 Brother 2 Alive Daughter (Age 31) sinus cancer Father Mother Sister 1 Sister 2 Sister 3 Son Alive Social History Tobacco Use Types Packs/Day Years Used Date Smoking Tobacco: Former Cigarettes Q uit: 10/05/1963 Smokeless Tobacco: Never Tobacco Cessation:Counseling Given: Not Answered Comments:quit in 1963 Alcohol Use Standard Drinks/Week [...] AM CDT Legal Sex Male 4:42 AM LEAD DENTAL ASSISTANT Gender Identity Male 12/19/2020 9:39 AM CDT Sexual Orientation Choose not to disclose 2020 9:39 AM CDT 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 Not on file Not on file Last Filed Vital Signs Vital Sign Reading Time Taken Comments Blood Pressure 148/82 04/17/2024 1:47 PM LEAD DENTAL ASSISTANT Pulse 68 04/17/2024 1:47 PM LEAD DENTAL ASSISTANT Temperature 36.3 C (97.4 F) 04/16/2024 9:14 AM LEAD DENTAL ASSISTANT Respiratory Rate 18 04/16/2024 9:14 AM LEAD DENTAL ASSISTANT Oxygen Saturation 97% 04/17/2024 1:47 PM LEAD DENTAL ASSISTANT Inhaled Oxygen Concentration - - Weight 91.8 kg (202 lb 6.4 oz) 04/17/2024 1:47 P M LEAD DENTAL ASSISTANT Height 179.7 cm (5' 10.75) 04/17/2024 1:[address] Body Mass Index 28.43 04/17/2024 1:47 PM LEAD DENTAL ASSISTANT Plan of Treatment Health Maintenance Due Date Last Done Comments DTAP/TDAP/TD IMMUNIZATION (2 - Td or Tdap) 07/02/2022 07/02/2012, 04/08/2001 ANNUAL REVIEW OF HM ORDERS 12/22/2022 12/22/2021, ZOSTER IMMUNIZATION (2 of 2) 02/19/2023 12/25/2022 COVID-19 Vaccine (2 - season) 2023 01/16/2021 MEDICARE ANNUAL WELLNESS VISIT 05/01/2024 05/01/2023, 12/22/2021, 01/21/2018, Additional history exists BMP 04/16/2025 04/16/2024, 02/0 09/2023, 12/22/2021, Additional history exists FALL RISK ASSESSMENT 04/16/2025 04/16/2024, 05/01/2023, 12/22/2021, Additional history exists GLUCOSE 04/16/2027 04/16/2024, 02/0 09/2023, 12/22/2021, Additional history exists ADVANCE CARE PLANNING 04/16/2029 04/16/2024 , 12/22/2021, 07/02/2012 LIPID 04/16/2029 04/16/2024, 02/0 09/2023, 12/22/2021, Additional history exists COLORECTAL CANCER SCREENING Discontinued FIT Discontinued 02/01/2018, 12/01/2015 RSV VACCINE Completed 04/07/2023 INFLUENZA VACCINE Completed 02/06/2024, , 01/18/2022, Additional history exists Pneumococcal Vaccine: 50+ Years Completed 02/06/2024, 12/17/2014, 10/27/2010 PHQ-2 (once per calendar year) Completed 04/16/2024, 05/01/2023, 12/22/2021, Additional history exists COLONOSCOPY Discontinued CT COLONOGRAPHY Discontinued FLEX SIG Discontinued HPV IMMUNIZATION Aged Out No longer e ligible based on patient's age to complete this topic MENINGITIS IMMUNIZATION Aged Out No l onger eligible based on patient's age to complete this topic RSV MONOCLONAL ANTIBODY Aged Out No l onger eligible based on patient's age to complete this topic sDNA (Cologuard) Discontinued Procedures Procedure Name Priority Date/Time Associated Diagnosis Comments LIPID REFLEX TO DIRECT LDL PANEL Routine 04/16/2024 10:02 AM LEAD DENTAL ASSISTANT Essential hypertension PROSTATE SPECIFIC ANTIGEN SCREEN Routine 04/16/2024 10:02 AM LEAD DENTAL ASSISTANT Screening for prostate cancer BASIC METABOLIC PANEL Routine 04/16/2024 10:02 AM LEAD DENTAL ASSISTANT Essential hypertension FECAL COLORECTAL CANCER SCREEN FIT Routine 02/01/2018 from Last 3 Months or Most Recently Relevant to Health Maintenance Results * PSA, screen (04/16/2024 10:02 AM LEAD DENTAL ASSISTANT) Prostate Specific Antigen Screen 3.10 ng/mL 04/16/2024 10:49 PM LEAD DENTAL ASSISTANT [facility] Comment:No reference ranges have been established for patients over 80 years. Blood BLOOD SPECIMEN / Unknown Venipuncture / Unknown 04/16/2024 10:02 AM LEAD DENTAL ASSISTANT 04/16/2024 10:02 AM LEAD DENTAL ASSISTANT Narrative [facility] - 04/16/2024 10:49 PM LEAD DENTAL ASSISTANT This result is obtained using the Donald [...] is needed to diagnose prostate pathology. The [place] recommends annual examination with digital [...] LAB - BLOOD ORDERABLES Final Res ult [facility] [address] [facility] [place] [address] * (ABNORMAL) Lipid panel reflex to direct LDL Fasting (04/16/2024 10:02 AM LEAD DENTAL ASSISTANT) Cholesterol 184 <200 mg/dL 04/16/2024 10:49 PM LEAD DENTAL ASSISTANT [facility] Triglycerides 171(H) <150 mg/dL 04/16/2024 10:49 PM LEAD DENTAL ASSISTANT [facility] Direct Measure HDL 50 >=40 mg/dL 04/16/2024 10:49 PM LEAD DENTAL ASSISTANT [facility] LDL Cholesterol Calculated 100(H) <100 mg/dL 04/16/2024 10:49 PM LEAD DENTAL ASSISTANT [facility] Non HDL Cholesterol 134(H) <130 mg/dL 04/16/2024 10:49 PM LEAD DENTAL ASSISTANT [facility] Patient Fasting > 8hrs? Yes 04/16/2024 10:49 PM LEAD DENTAL ASSISTANT [facility] Blood BLOOD SPECIMEN / Unknown Venipuncture / Unknown 04/16/2024 10:02 AM LEAD DENTAL ASSISTANT 04/16/2024 10:02 AM LEAD DENTAL ASSISTANT Narrative [facility] - 04/16/2024 10:49 PM LEAD DENTAL ASSISTANT Cholesterol Desirable: < 200 mg/dL Borderline High: [...] BLOOD ORDERABLES Final Res ult [facility] [address] [facility] [address] [facility] [place] [address] * BASIC METABOLIC PANEL (04/16/2024 10:02 AM LEAD DENTAL ASSISTANT) Sodium 140 135 - 145 mmol/L 04/16/2024 10:49 PM LEAD DENTAL ASSISTANT [facility] Potassium 3.9 3.4 - 5.3 mmol/L 04/16/2024 10:49 PM LEAD DENTAL ASSISTANT [facility] Chloride 102 98 - 107 mmol/L 04/16/2024 10:49 PM LEAD DENTAL ASSISTANT [facility] Carbon Dioxide (CO2) 27 22 - 29 mmol/L 04/16/2024 10:49 PM LEAD DENTAL ASSISTANT [facility] Anion Gap 11 7 - 15 mmol/L 04/16/2024 10:49 PM LEAD DENTAL ASSISTANT [facility] Urea Nitrogen 12.9 8.0 - 23.0 mg/dL 04/16/2024 10:49 PM LEAD DENTAL ASSISTANT [facility] Creatinine 1.13 0.67 - 1.17 mg/dL 04/16/2024 10:49 PM LEAD DENTAL ASSISTANT [facility] GFR Estimate 66 >60 mL/min/1.7 3m2 04/16/2024 10:49 PM LEAD DENTAL ASSISTANT [facility] Comment:eGFR calculated us2020 CKD-EPI equation. Calcium 10.0 8.8 - 10.4 mg/dL 04/16/2024 10:49 PM LEAD DENTAL ASSISTANT [facility] Comment:Reference intervals for this test were updated on 10/08/2023 to reflect our healthy population more accurately. There may be differences in the flagging of prior results with similar values performed with this method. Those prior results can be interpreted in the context of the updated reference intervals. Glucose 98 70 - 99 mg/dL 04/16/2024 10:49 PM LEAD DENTAL ASSISTANT [facility] Patient Fasting > 8hrs? Yes 04/16/2024 10:49 PM LEAD DENTAL ASSISTANT [facility] Blood BLOOD SPECIMEN / Unknown Venipuncture / Unknown 04/16/2024 10:02 AM LEAD DENTAL ASSISTANT 04/16/2024 10:02 AM LEAD DENTAL ASSISTANT us Denise Mason MD LAB - BLOOD ORDERABLES Final Res ult [facility] [address] [facility] [address] [place] [address], [facility] * Fecal colorectal cancer screen FIT (02/01/2018) Occult Blood Scn FIT Negative Negative [facility] Stool specimen (specimen) 02/01/2018 Narrative [facility] - 02/01/2018 FECAL IMMUNOCHEMICAL TESTING (FIT) [facility] us Provider Outside LAB - STOOLS ORDERABLES Final R esult [facility] [address] [place] [id number] from Last 3 Months or Most Recently Relevant to Health Maintenance [place] [address] [facility] MEDICARE SUPPLEMENT [place] [phone] MEDICARE [place] MEDICARE SUPPLEMENT Care Teams Teletypist Relationship Specialty Start Date End Date John Beasley MD [address] [place] [address] PCP - General 08/04/08 John Beasley MD [address] [place] [address] Assigned PCP 01/06/22 Maico Hussein MD [address] [place] [address] Cardiovascular Disease 04/16/24
== END 2024-04-22 10:50 | disposition home or self-care (01) ==
LOC: OR 09:58 → MEDSURG 09:59
PROVIDERS: PCP Internal Medicine; Visit Provider Orthopaedic Surgery
PROC: (CPT 27447; principal; 2024-04-21 11:15)
DX: M17.11 Unilateral primary osteoarthritis, right knee (principal); S83.241A Other tear of medial meniscus, current injury, right knee, initial encounter; G89.18 Other acute postprocedural pain; I97.3 Postprocedural hypertension; I44.0 Atrioventricular block, first degree; I10 Essential (primary) hypertension; Z79.82 Long term (current) use of aspirin
CPT/HCPCS: 27447; 01402; 36415; 64447; 64454; 73560; 76942; 82565; 84132; 84295; 84520; 85025; 85610; 97110; 97116; 97162; 97165; 97535; 99100; A9270; C1776; J0665; J0690; J1100; J2250; J2405; J2704; J3010; J7030; J7120

== ENCOUNTER 2024-05-18 13:00 | Outpatient (RCR) | payer MEDICARE, BC, SELFPAY ==
--- NOTE | 2024-04-08 14:05 | PT.OPE ---
PT [facility] Outpatient Eval PT [facility] Outpatient Eval Start: 04/08/24 12:45 Freq: Status: Active Protocol: Document 04/08/24 12:45 ОЛЬГА (Rec: 04/08/24 12:51 ОЛЬГА [id number]) E-signed By Roman Hughes DPT, MS Physical Therapy Outpatient Evaluation Insurance Information Recert Due Date 07/07/24 Insurance Name Medicare B Medical Diagnosis Pre-op right total knee arthroplasty Treating Diagnosis R knee pain, decreased R knee ROM, decreased R LE flexibility and strength, and gait dysfunction Subjective Preferred Name Gerardo Snyder Pt is an 78 y.o. male who presents to PT prior to R TKA on 04/21/24 at [facility]. Unsure if he will return home the same day as surgery or stay overnight. Has struggled with worsening R knee pain over the past few years with his knee giving out on him several times while golfing last year due to pain and weakness. 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 Lives with his in single -story [facility] with a basement with his bedroom and bathroom on the main level. No steps to enter his home. Bathroom has a walk-in shower. Does not currently use an AD and will need a FWW before returning home from the hospital. PMH includes R knee OA. AGGR factors: walking, squatting, kneeling, standing, carrying objects, sleeping, golfing, uneven surfaces, extended sitting. ALLEV factors: ice, rest, Advil. 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 Good quality of R quad set and SLR with R knee ROM of 0-0 -128 deg. Pt highly motivated to increase overall activity levels with less pain. He will benefit from continued skilled PT intervention to address these limitations, returning to PT for re- evaluation following surgery. Primary Functional Limitations Walking, squatting, kneeling, standing, carrying objects, sleeping, uneven surfaces, extended sitting Plan of Care Rehabilitation Potential Excellent Physical Therapy Goals Short-term goals to be completed in 4 weeks: 1.Pt will display improved R LE strength as evidenced by ability to perform >10 SLR of good quality to improve quality of gait and progress to ambulation with single point cane. 2.Pt will report waking <3 times per night due to R knee pain to improve quality of sleep. Long-term goals to be completed in 10 weeks: 1.Pt will be independent and compliant with HEP 2. Pt will display improved R knee passive ROM > 0-0-120 deg to improve quality of gait. 3.Pt will display improved R hip flex, hip ABD, quad and hamstring strength >4/5 to improve quality of gait without assistive device. 4.Pt report >75% improvement in LEFS questionnaire to significantly improve anna marie to daily activities. Coordination/Communication With Referral Source Treatment Plan/Direct Interventions Gait Training,Ice/Cold/ Vasopneumatic,Joint Mobilization,Manual Therapy, Therapeutic Activities, Therapeutic Exercises Frequency/Duration One pre-op visit then 2 x per week for at least 16-20 visits , decreasing visit frequency, as able. Patient Will Be Discharged From Therapy Completion of LTG(s),Skills Plateau,Independent w/HEP, Independently Progressing Evaluation Billing Untimed Code Treatment Minutes 24 Complexity Moderate Certification Information Initial Certification Date 04/08/24 Ending Certification Date 07/07/24 Provider Signature Required Yes Provider Signature Shows Agreement With POC & Medical Necessity Physician NPI Number Write NPI# Here Physician Comment/Change : Physician Signature & Date Requested Please Sign/Date Here
== END 2024-09-15 23:59 | disposition home or self-care (01) ==
PROVIDERS: PCP Internal Medicine; Visit Provider Orthopaedic Surgery
DX: M17.11 Unilateral primary osteoarthritis, right knee (principal); Z96.651 Presence of right artificial knee joint; Z51.89 Encounter for other specified aftercare
CPT/HCPCS: 97110; 97116; 97140; 97162; 97164